=== PATIENT | female | born 1985 | race Caucasian/White ===

== ENCOUNTER → 2024-04-10 11:43 | Outpatient (CLI) | payer OTHER, SELFPAY ==
--- NOTE | 2024-04-10 11:45 | DI.RAD.S_ITS ---
PROCEDURE: XR WRIST LT MIN 3V INDICATIONS: Left wrist strain TECHNIQUE: 4 views of the wrist were acquired. COMPARISON: None. FINDINGS: Bones: No fractures or dislocations. No suspicious bony lesions. Soft tissues: No suspicious soft tissue calcifications. IMPRESSION: No acute bony abnormality. Dictated by: Luis Enrique Pemberton M.D. on 04/10/2024 at 18:49 Approved by: Luis Enrique Pemberton M.D. on 04/10/2024 at 18:49
== END ==
LOC: RAD 11:44
PROVIDERS: Referring Provider Nurse Practitioner Family; Visit Provider Nurse Practitioner Family
DX: S66.912A Strain of unspecified muscle, fascia and tendon at wrist and hand level, left hand, initial encounter (principal); X58.XXXA Exposure to other specified factors, initial encounter
CPT/HCPCS: 73110